=== PATIENT | female | born 1955 | race American Indian/Alaskan Native ===

== ENCOUNTER 2017-09-12 02:23 | Emergency (ER) | payer SELFPAY ==
[2017-09-12] MEDS ORDERED: TORADOL ONE (02:50)
[2017-09-12] MEDS ORDERED: TORADOL IM ONE (02:59)
[2017-09-12] MEDS ORDERED: PROVENTIL IH ONE (03:02)
--- NOTE | 2017-09-12 04:52 | Emergency Department Report ---
- General Chief Complaint: Upper Respiratory Infection Stated Complaint: PAULINA Time Seen by Provider: 09/12/17 04:47 Source: patient Mode of arrival: Ambulatory Limitations: No Limitations - History of Present Illness Initial Comments: 62-year-old -[place] female visiting from [place] c/o sore throat and nasal congestion, bilaterally ear pain since and worsening. Patient reports that she had flown down on and started to really feel bad on Wednesday pain in her throat and ears. Patient admits to nasal congestion no fever no chills no coughing or nausea no vomiting. Patient did not take anything for pain. SHe was given a Toradol injection in triage which she reports has helped a lot. MD Complaint: rhinorrhea, nasal congestion, other (bilateral ear pain) -: days(s) (2) Severity scale (0 -10): 10 Quality: sharp, stabbing Consistency: constant Improves With: nothing Worsens With: nothing Associated Symptoms: rhinorrhea, nasal congestion, ear pain. denies: fever, chills, stiff neck, cough, nausea, vomiting, diarrhea Treatments Prior to Arrival: none - Related Data Previous Rx's Medication Instructions Recorded Last Taken Type Amoxicillin [Amoxicillin TAB] 875 mg PO BID #20 tablet 09/12/17 Unknown Rx Levocetirizine Dihydrochloride 5 mg PO QDAY #20 tablet 09/12/17 Unknown Rx Oxymetazoline 0.05% [Afrin] 1 spray NS BID PRN #1 bottle 09/12/17 Unknown Rx Allergies Allergy/AdvReac Type Severity Reaction Status Date / Time No Known Allergies Allergy Verified 09/12/17 02:55 ED Review of Systems ROS: Stated complaint: PAULINA Other details as noted in HPI Constitutional: denies: chills, fever Eyes: denies: eye pain, eye discharge, vision change ENT: ear pain, throat pain, congestion (nasal) Respiratory: denies: cough, shortness of breath, wheezing Cardiovascular: denies: chest pain, palpitations Endocrine: no symptoms reported Gastrointestinal: denies: abdominal pain, nausea, diarrhea ED Past Medical Hx - Past Medical History Hx Hypertension: Yes Hx Asthma: Yes - Surgical History Additional Surgical History: Hernia Repair - Social History Smoking Status: Former Smoker Substance Use Type: None - Medications Home Medications: Home Medications Medication Instructions Recorded Confirmed Last Taken Type Amoxicillin [Amoxicillin TAB] 875 mg PO BID #20 tablet 09/12/17 Unknown Rx Levocetirizine Dihydrochloride 5 mg PO QDAY #20 tablet 09/12/17 Unknown Rx Oxymetazoline 0.05% [Afrin] 1 spray NS BID PRN #1 bottle 09/12/17 Unknown Rx ED Physical Exam - General Limitations: No Limitations - Head Head exam: Present: atraumatic, normocephalic - Eye Eye exam: Present: normal appearance - Expanded ENT Exam Expanded TM/Canal exam: Erythema: Left TM, Effusion: Left TM, Loss of Landmarks: Left TM Throat exam: Negative: tonsillomegaly - Neck Neck exam: Present: normal inspection, full ROM. Absent: lymphadenopathy - Respiratory Respiratory exam: Present: normal lung sounds bilaterally. Absent: respiratory distress - Cardiovascular Cardiovascular Exam: Present: regular rate, normal rhythm. Absent: systolic murmur, diastolic murmur, rubs, gallop ED Course Vital Signs 09/12/17 02:33 Temperature 99 F Pulse Rate 88 Respiratory 16 Rate Blood Pressure 164/94 O2 Sat by Pulse 100 Oximetry - Reevaluation(s) Reevaluation #1: 09/12/17 05:25 Patient reports she feels much better after having the Toradol injection. ED Medical Decision Making - Medical Decision Making Patient has been advised he would abut this provider in fast track. Patient was given Toradol injection in triage which she reports helped and saved her life. Patient appears to have a left infusion. Patient was recently on an airplane. We'll discharge patient on antibiotics and nasal decongestion as well as xzal 5mg day Critical care attestation.: If time is entered above; I have spent that time in minutes in the direct care of this critically ill patient, excluding procedure time. ED Disposition Clinical Impression: Acute effusion of left ear Disposition: [id number]-01 TO HOME OR SELFCARE Is pt being admited?: No Does the pt Need Aspirin: No Condition: Stable Instructions: Otitis Media (ED), Allergic Rhinitis (ED) Additional Instructions: Please complete antibiotics as prescribed. Please take medication as prescribed. Follow up with her primary care provider if symptoms persist or gets worse. Prescriptions: Amoxicillin [Amoxicillin TAB] 875 mg PO BID #20 tablet Levocetirizine Dihydrochloride 5 mg PO QDAY #20 tablet Oxymetazoline 0.05% [Afrin] 1 spray NS BID PRN #1 bottle PRN Reason: Nasal Congestion Referrals: PRIMARY CARE, [Primary Care Provider] - 3-5 Days
[2017-09-12 05:41] VITALS: BP 159/90
== END 2017-09-12 05:04 | disposition home or self-care (01) ==
LOC: ED 02:23
DX: H65.192 Other acute nonsuppurative otitis media, left ear (principal); I10 Essential (primary) hypertension; J45.909 Unspecified asthma, uncomplicated; Z87.891 Personal history of nicotine dependence
CPT/HCPCS: 87116; 87430; 96372; 99283; J1885